=== PATIENT | female | born 1965 | race Caucasian/White ===

== ENCOUNTER → 2018-01-07 | Outpatient (CLI) | payer OTHER | END | disposition home or self-care (01) | LOC: CFH 08:33 | PROVIDERS: ATTEND Internal Medicine | DX: R06.02 Shortness of breath (principal); L93.0 Discoid lupus erythematosus | CPT/HCPCS: 71250 ==

== ENCOUNTER 2019-02-02 13:44 | Emergency (ER) | payer OTHER ==
[~2019-02-02] VITALS: Ht 162.6 cm; Wt 77.0 kg
[2019-02-02 14:48] LABS: BASOPHILS # (AUTO) 0.02 x10^3/uL (0-0.1); BASOPHILS % (AUTO) 0 % (0-1); EOSINOPHILS # (AUTO) 0.02 x10^3/uL (0-0.4); EOSINOPHILS % (AUTO) 0 % (1-7); LYMPHOCYTES % (AUTO) 18 % (22-44); MD NO; MEAN CORPUSCULAR HEMOGLOBIN 28.2 pg (27.0-34.8); MEAN CORPUSCULAR HGB CONC 33.5 g/dL (32.4-35.8); MEAN CORPUSCULAR VOLUME 84.3 fL (80-100); MEAN PLATELET VOLUME 8.8 fL (7.4-10.4); MONOCYTES # (AUTO) 0.35 x10^3/uL (0.2-0.8); MONOCYTES % (AUTO) 5 % (2-9); NEUTROPHILS # (AUTO) 5.17 x10^3/uL (1.8-6.8); NEUTROPHILS % (AUTO) 76 % (42-75); PLATELET COUNT 232 x10^3/uL (130-400); RED CELL DISTRIBUTION WIDTH 13.3 % (9.6-15.2)
[2019-02-02 14:56] LABS: CALCIUM 9.5 mg/dL (8.5-10.1)
[2019-02-02 15:01] LABS: ALANINE AMINOTRANSFERASE 41 U/L (12-78); ALBUMIN 3.8 g/dL (3.4-5.0); ALKALINE PHOSPHATASE 99 U/L (45-117); BILIRUBIN,TOTAL 0.3 mg/dL (0.2-1.0); CREATININE 0.92 mg/dL (0.55-1.02); TOTAL PROTEIN 8.3 g/dL (6.4-8.2)
[2019-02-02 15:05] LABS: ANION GAP 6 mmol/L (5-15); CHLORIDE 97 mmol/L (98-107)
--- NOTE | 2019-02-02 15:11 | NUR ---
PT TO ROOM FROM LOBBY.
--- NOTE | 2019-02-02 15:21 | NUR ---
PT STATED THAT SHE HAD LABS DONE AND HER POTASSIUM IS LOW. PT IS TAKING HCTZ, BUT DID NOT TAKE IT LAST NIGHT. PT IS ALERT, ORIENTED, WITH NAD. PT IS CONNECTED TO THE MONITOR. CALL LIGHT WITHIN REACH.
--- NOTE | 2019-02-02 15:27 | NUR ---
REPORT TO HARESH MCNEILL AT BEDSIDE. ALL MONTIORS IN PLACE. PT A&O, RESPS EVEN AND UNLABRUPAL SANDOVAL. Addendum: 02/02/19 at 1528 by HARJIT REPORT TO HARESH MCNEILL AT BEDSIDE. ALL MONTIORS IN PLACE. 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 PT A&O, RESPS EVEN AND RUPAL HILL.
[2019-02-02] MEDS ORDERED: POTASSIUM CHLORIDE 20 MEQ TAB.ER.PRT ONE (16:16)
--- NOTE | 2019-02-02 16:20 | NUR ---
MEDICATION REQUESTED FROM PHARMACY.
--- NOTE | 2019-02-02 16:22 | NUR ---
PT AMBULATED TO THE BATHROOM TO PROVIDE URINE SAMPLE, WITH STEADY GAIT.
[2019-02-02] MEDS: NS IV SCH ×2 (16:30→17:15)
[2019-02-02] MEDS: KCL IV SCH ×2 (16:30→17:15)
[2019-02-02] MEDS ORDERED: POTASSIUM CHLORIDE 20 MEQ TAB.ER.PRT PO ONE (16:30)
[2019-02-02] MEDS ORDERED: NS + 20MEQ KCL 1,000 ML IV ONE (16:36)
[2019-02-02 16:53] LABS: MICROSCOPIC AUTO
--- NOTE | 2019-02-02 16:58 | NUR ---
SPOKE TO MD ABOUT PHARMACY NOT SENDING A 250 ML BAG OF NS+20 MEQ OF K AND THEY WANTED THE NURSE TO USE 1000 ML. SPOKE TO MD. STATED THAT SHE WANTS THE K+ TO GO IN 2 HOURS, SO THAT WONT WORK. PER MD PHARMACY CAN SEND 250 ML OR 500 ML OF NS + 20 MEQ OF K+. CALLED PHARMACY AND EXPLAINED, THEY STATED THAT THEY WILL CHANGE THE ORDER AND SEND THE MEDICATION.
[2019-02-02] MEDS ORDERED: POTASSIUM ACETATE 20 MEQ in SODIUM CHLORIDE 0.9% 250 ML IV ONE (17:00)
[2019-02-02] MEDS: POTASSIUM CHLORIDE 20 MEQ in SODIUM CHLORIDE 0.9% 250 ML IV ONE ×2 (17:00→17:11)
[2019-02-02 17:06] LABS: CULTURE INDICATED? YES
--- NOTE | 2019-02-02 17:30 | NUR ---
PT IS RESTING IN BED, RESPIRATIONS EQUAL AND NON LABORED. NAD. PT IS CONNECTED TO THE MONITOR. CALL LIGHT WITHIN REACH.
[2019-02-02] MEDS ORDERED: ASPI-515 PO (17:42)
--- NOTE | 2019-02-02 18:40 | NUR ---
CALLED [facility] ASKING THEM TO SEND PTS TRAY. THEY STATED THAT IT WAS SENT. REQUESTED THEM TO SEND ANOTHER SINCE IT IS NOT HERE.
--- NOTE | 2019-02-02 18:52 | NUR ---
REPORT TO MIHIR HUTSON.
--- NOTE | 2019-02-02 19:36 | NUR ---
FOOD PROVIDED FROM [employer] [facility]
[2019-02-02 20:11] VITALS: BP 130/70
--- NOTE | 2019-02-02 20:36 | NUR ---
pt's repeat labwork back. chart up for recheck
== END 2019-02-02 21:14 | disposition home or self-care (01) ==
LOC: ED 18:17
DX: E87.6 Hypokalemia (principal); I10 Essential (primary) hypertension
CPT/HCPCS: 36415; 80053; 81001; 84132; 85025; 87086; 93005; 96365; 96366; 99284; J3480; J7050